=== PATIENT | female | born 1950 | race Caucasian/White ===

== ENCOUNTER → 2017-04-13 | Outpatient (REF) | payer MEDICARE, OTHER | LOC: ZZSENDIN 12:24 | PROVIDERS: ATTEND Physician Assistant Medical | DX: N39.0 Urinary tract infection, site not specified (principal); R82.99 Other abnormal findings in urine | CPT/HCPCS: 87088 ==

== ENCOUNTER 2017-08-29 00:11 | Day surgery (SDC) | payer MEDICARE, OTHER ==
[~2017-08-29] VITALS: Ht 165.1 cm; Wt 96.2 kg
[~2017-08-29 00:11] MED LIST: ALLO100T70 PO; CELE-1 PO; DULO30CA35 PO
[2017-08-29] MEDS ORDERED: PROPOFOL EMUL(*) 10MG/ML 20 ML 40 ML ONE (07:05)
[2017-08-29 09:03] VITALS: BP 158/92
[2017-08-29] MEDS ORDERED: NORMOSOL R SOLN(*) 1000 ML BAG 1,000 ML IV PRN (10:00)
[2017-08-29] MEDS ORDERED: PROPOFOL EMUL(*) 10MG/ML 20 ML 20 ML ONE (10:12)
[2017-08-29 10:19] VITALS: BP 109/63
--- NOTE | 2017-08-29 10:25 | Short(Outpt) Discharge Summary ---
Discharge Summary Reason for Hosp/Final Diag: (1) Colon cancer screening Status: Chronic Hospital Course & Plan: Colonoscopy completed without problems, poor prep. Departure Discharge to: Home, Self Care Discharge Instructions Home Meds Reported Medications Duloxetine Hcl (CYMBALTA) 30 Mg Capsule.dr, 30 MG PO QDAY, #5 CAP 07/03/17 Celecoxib (CELEBREX) 200 Mg Capsule, 200 MG PO QDAY, CAPSULE 07/03/17 Allopurinol (ALLOPURINOL) 100 Mg Tablet, 100 MG PO QDAY, #10 TAB 07/03/17 Diet: Regular Activity: As Tolerated Special Instructions: Your colonoscopy was completed without problems. Your prep wasn't adequate to call this a good screening test. There was too much liquid, solid, and particulate feces that I can't reassure you that you don't have colon polyps. I did make it all the way to the end of your colon and the parts that I could see did not have polyps or cancers but I can't rule out polyps covered by feces. I recommend that we try again with a different bowel prep in the next year or 2. MARY FRY MD Aug 29, 2017 10:25
[2017-08-29 10:44] VITALS: BP 122/62
[2017-08-29 10:46] VITALS: BP 99/67
== END 2017-08-29 11:08 | disposition home or self-care (01) ==
LOC: OR 00:11
PROVIDERS: ATTEND Surgery
DX: Z12.11 Encounter for screening for malignant neoplasm of colon (principal)
CPT/HCPCS: 00812; G0121; J2704

== ENCOUNTER → 2018-01-16 | Outpatient (REF) | payer MEDICARE, OTHER | LOC: ZZSENDIN 14:42 | PROVIDERS: ATTEND Family Medicine | DX: R35.0 Frequency of micturition (principal); R82.79 Other abnormal findings on microbiological examination of urine | CPT/HCPCS: 81001; 87088 ==

== ENCOUNTER 2018-05-29 20:31 | Inpatient (IN) | payer MEDICARE, OTHER ==
[~2018-05-29] VITALS: Ht 165.1 cm; Wt 107.2 kg
--- NOTE | 2018-05-29 20:55 | ER Report ---
History and Physical Time Seen By MD: 20:55 Hx. of Stated Complaint: HAS HAD ABDOMINAL AND BACK PAIN FOR 2 WEEKS. THINKS IT'S GALL STONES HPI/ROS CHIEF COMPLAINT: Abdominal and back pain HISTORY OF PRESENT ILLNESS: This is a 60-year-old female. She is having pain in her back that radiates through to her abdomen, has been that way for several weeks, thinks it may be her gallbladder. Pain seems worse in the epigastric and right upper quadrant area. Associated with some nausea. Pain is sharp at times. Nothing really makes it worse or better, sometimes it'll worse with position change. No definite fevers or chills but having some hot flashes at times. Sometimes the pain is bad enough that it takes her breath away but she is not short of breath. Allergies: Coded Allergies: levofloxacin (Verified Allergy, Severe, 05/29/18) lidocaine (Verified Allergy, Severe, ANAPHYLAXIS, 05/29/18) Home Meds Reported Medications Duloxetine Hcl (CYMBALTA) 30 Mg Capsule.dr, 30 MG PO QDAY, #5 CAP 07/03/17 Celecoxib (CELEBREX) 200 Mg Capsule, 300 MG PO QDAY, CAPSULE 07/03/17 Allopurinol (ALLOPURINOL) 100 Mg Tablet, 100 MG PO QDAY, #10 TAB 07/03/17 Reviewed Nurses Notes: Yes Hx Smoking: No Smoking Status: Never Smoker Hx Substance Use Disorder: No Hx Alcohol Use: No Constitutional Vital Sign - Last 24 Hours 05/29/18 05/29/18 05/29/18 05/29/18 20:31 20:39 20:41 20:46 Temp 98.2 Pulse ??? 120 117 Resp 24 B/P (MAP) 139/79 139/79 (99) Pulse Ox 85 92 O2 Delivery Room Air 05/29/18 05/29/18 05/29/18 05/29/18 21:00 21:01 21:16 21:30 Pulse 121 114 B/P (MAP) 146/102 (117) 149/90 (109) Pulse Ox 91 92 05/29/18 05/29/18 05/29/18 05/29/18 21:31 21:46 22:00 22:01 Pulse 114 111 ??? B/P (MAP) 115/73 (87) Pulse Ox 89 91 4/17/05/29/18 05/29/18 05/29/18 22:16 22:21 22:30 23:06 Pulse ??? 106 136 B/P (MAP) 124/68 (86) Pulse Ox 85 85 81 05/29/18 23:21 Pulse 108 Pulse Ox 90 Intake and Output 05/29/18 05/29/18 05/30/18 14:59 22:59 06:59 Intake Total 1000 ml Balance 1000 ml Physical Exam General Appearance: The patient is alert. Having mild acute distress because of the pain. Eyes: Pupils are equal, round. No pallor, injection or icterus. ENT: Mucous membranes are moist. Respiratory: Lungs are clear to auscultation. Cardiovascular: Regular rate and rhythm. No murmurs, gallops or rubs. Gastrointestinal: Abdomen is soft, tender in the right upper quadrant with positive Lilly sign. Guarding but no rebound. No masses or organomegaly. Normal active bowel sounds. No costovertebral angle tenderness with percussion. Neurological: Alert and oriented x3. No focal neurologic deficits Skin: Warm and dry. Musculoskeletal: No pain with palpating throughout the back. DIFFERENTIAL DIAGNOSIS: After history and physical exam, differential diagnosis was considered for abdominal pain including but not limited to colitis, gastroenteritis, cholecystitis, pancreatitis and urinary tract infection. Medical Decision Making Data Points Result Diagram: 05/29/18210805/29/182108 Laboratory Hematology Test 05/29/18 21:09 05/29/18 23:02 Red Blood Count 5.57 M/uL (4.17-5.56) Mean Corpuscular Volume 95.5 fL (80.0-96.0) Mean Corpuscular Hemoglobin 32.2 pg (26.0-33.0) Mean Corpuscular Hemoglobin Concent 33.7 g/dL (32.0-36.0) Red Cell Distribution Width 14.3 % (11.5-14.5) Mean Platelet Volume 8.0 fL (7.2-11.1) Neutrophils (%) (Auto) 90.2 % (39.4-72.5) Lymphocytes (%) (Auto) 3.7 % (17.6-49.6) Monocytes (%) (Auto) 4.6 % (4.1-12.4) Eosinophils (%) (Auto) 0.0 % (0.4-6.7) Basophils (%) (Auto) 1.5 % (0.3-1.4) Nucleated RBC Relative Count (auto) 0.0 /100WBC Neutrophils # (Auto) 10.9 K/uL (2.0-7.4) Lymphocytes # (Auto) 0.5 K/uL (1.3-3.6) Monocytes # (Auto) 0.6 K/uL (0.3-1.0) Eosinophils # (Auto) 0.0 K/uL (0.0-0.5) Basophils # (Auto) 0.2 K/uL (0.0-0.1) Nucleated RBC Absolute Count (auto) 0.01 K/uL Sodium Level 132 mmol/L (137-145) Potassium Level 4.3 mmol/L (3.5-5.0) Chloride Level 98 mmol/L (98-107) Carbon Dioxide Level 24 mmol/L (22-31) Blood Urea Nitrogen 10 mg/dl (7-18) Creatinine 0.70 mg/dl (0.52-1.04) Glomerular Filtration Rate Calc > 60.0 Random Glucose 176 mg/dl (75-110) Calcium Level 8.9 mg/dl (8.4-10.2) Total Bilirubin 0.4 mg/dl (0.2-1.3) Aspartate Amino Transf (AST/SGOT) 24 U/L (0-35) Alanine Aminotransferase (ALT/SGPT) 21 U/L (0-56) Alkaline Phosphatase 118 U/L (0-126) Total Protein 7.7 g/dl (6.3-8.2) Albumin 4.2 g/dl (3.5-5.0) Amylase Level 49 U/L (0-110) Lipase 44 U/L (23-300) Helicobacter pylori IgG Antibody Negative (NEGATIVE) Urine Color Yellow Urine Clarity Slightly-cloudy Urine pH 7.0 pH (4.8-9.5) Urine Specific [place] 1.018 Urine Protein Negative mg/dL (NEGATIVE) Urine Glucose (UA) Negative mg/dL (NEGATIVE) Urine Ketones 20 mg/dL (NEGATIVE) Urine Blood Small (NEGATIVE) Urine Nitrite Negative (NEGATIVE) Urine Bilirubin Negative (NEGATIVE) Urine Urobilinogen Negative mg/dL (0.2-1.9) Urine Leukocyte Esterase Negative (NEGATIVE) Urine RBC 10 /HPF (0-2/HPF) Urine WBC 2 /HPF (0-5/HPF) Urine Squamous Epithelial Cells Many /LPF (</=FEW) Urine Bacteria Few /HPF (NONE-FEW) Urine Mucus Few /HPF (NONE-FEW) Chemistry Test 05/29/18 21:09 05/29/18 23:02 White Blood Count 12.1 k/uL (4.5-11.0) Red Blood Count 5.57 M/uL (4.17-5.56) Hemoglobin 18.0 g/dL (12.0-16.0) Hematocrit 53.2 % (34.0-47.0) Mean Corpuscular Volume 95.5 fL (80.0-96.0) Mean Corpuscular Hemoglobin 32.2 pg (26.0-33.0) Mean Corpuscular Hemoglobin Concent 33.7 g/dL (32.0-36.0) Red Cell Distribution Width 14.3 % (11.5-14.5) Platelet Count 322 K/uL (150-450) Mean Platelet Volume 8.0 fL (7.2-11.1) Neutrophils (%) (Auto) 90.2 % (39.4-72.5) Lymphocytes (%) (Auto) 3.7 % (17.6-49.6) Monocytes (%) (Auto) 4.6 % (4.1-12.4) Eosinophils (%) (Auto) 0.0 % (0.4-6.7) Basophils (%) (Auto) 1.5 % (0.3-1.4) Nucleated RBC Relative Count (auto) 0.0 /100WBC Neutrophils # (Auto) 10.9 K/uL (2.0-7.4) Lymphocytes # (Auto) 0.5 K/uL (1.3-3.6) Monocytes # (Auto) 0.6 K/uL (0.3-1.0) Eosinophils # (Auto) 0.0 K/uL (0.0-0.5) Basophils # (Auto) 0.2 K/uL (0.0-0.1) Nucleated RBC Absolute Count (auto) 0.01 K/uL Glomerular Filtration Rate Calc > 60.0 Calcium Level 8.9 mg/dl (8.4-10.2) Total Bilirubin 0.4 mg/dl (0.2-1.3) Aspartate Amino Transf (AST/SGOT) 24 U/L (0-35) Alanine Aminotransferase (ALT/SGPT) 21 U/L (0-56) Alkaline Phosphatase 118 U/L (0-126) Total Protein 7.7 g/dl (6.3-8.2) Albumin 4.2 g/dl (3.5-5.0) Amylase Level 49 U/L (0-110) Lipase 44 U/L (23-300) Helicobacter pylori IgG Antibody Negative (NEGATIVE) Urine Color Yellow Urine Clarity Slightly-cloudy Urine pH 7.0 pH (4.8-9.5) Urine Specific [place] 1.018 Urine Protein Negative mg/dL (NEGATIVE) Urine Glucose (UA) Negative mg/dL (NEGATIVE) Urine Ketones 20 mg/dL (NEGATIVE) Urine Blood Small (NEGATIVE) Urine Nitrite Negative (NEGATIVE) Urine Bilirubin Negative (NEGATIVE) Urine Urobilinogen Negative mg/dL (0.2-1.9) Urine Leukocyte Esterase Negative (NEGATIVE) Urine RBC 10 /HPF (0-2/HPF) Urine WBC 2 /HPF (0-5/HPF) Urine Squamous Epithelial Cells Many /LPF (</=FEW) Urine Bacteria Few /HPF (NONE-FEW) Urine Mucus Few /HPF (NONE-FEW) Urinalysis Test 05/29/18 23:02 Urine Color Yellow Urine Clarity Slightly-cloudy Urine pH 7.0 pH (4.8-9.5) Urine Specific [place] 1.018 Urine Protein Negative mg/dL (NEGATIVE) Urine Glucose (UA) Negative mg/dL (NEGATIVE) Urine Ketones 20 mg/dL (NEGATIVE) Urine Blood Small (NEGATIVE) Urine Nitrite Negative (NEGATIVE) Urine Bilirubin Negative (NEGATIVE) Urine Urobilinogen Negative mg/dL (0.2-1.9) Urine Leukocyte Esterase Negative (NEGATIVE) Urine RBC 10 /HPF (0-2/HPF) Urine WBC 2 /HPF (0-5/HPF) Urine Squamous Epithelial Cells Many /LPF (</=FEW) Urine Bacteria Few /HPF (NONE-FEW) Urine Mucus Few /HPF (NONE-FEW) EKG/Imaging Imaging GALLBLADDER HISTORY: epigastric and ruq abd pain ADDITIONAL GALLBLADDER EXAMINATION: Abdominal ultrasound limited Additional Pertinent history: none COMPARISON STUDIES: none FINDINGS: Gallbladder: Stone laden gallbladder. Wall somewhat indistinct and is thickened up to 4.4 mm in size. No pericholecystic fluid. Positive Lilly sign. Liver: Enlarged heterogenous liver measuring 20 cm. Increased echogenicity compatible fatty infiltrative change. Common duct: normal. Maximal size is 9.0 mm. Pancreas: Obscured from overlying bowel gas. Right Kidney: 1.9 x 4.4 x 4.9 cm. Upper abdominal aorta and IVC: negative Ascites: none IMPRESSION: 1. Stone laden gallbladder with mildly thickened wall measuring up to 4.4 mm. Positive Lilly sign. The findings would be compatible with acute cholecystitis in the correct clinical setting. Common bile duct mildly dilated at 9 mm. Report Dictated By: Sukhi Campbell MD at 05/29/2018 10:38 PM ED Course/Re-evaluation Clinical Indication for ER IV: Hydration, IV Access ED Course Initial improvement with some morphine and Zofran as well as IV fluids. Ultrasound obtained and is positive for wall thickening and gallstones. No evidence of bile duct dilation. Labs show normal LFTs, amylase and lipase but a slight elevation of the white blood cell count. Discussed the case with Dr. Aragon, general surgery. Patient will be kept NPO, given IV fluids, pain and nausea medicines as needed and given Zosyn 3.375g IV. Decision to Disposition Date: May 29, 2018 Decision to Disposition Time: 23:04 Depart Departure Latest Vital Signs Vital Signs Date Time Temp Pulse Resp B/P (MAP) Pulse Ox O2 Delivery O2 Flow Rate FiO2 05/29/18 23:21 108 90 05/29/18 22:30 124/68 (86) 05/29/18 20:39 98.2 24 Room Air Impression: Primary Impression: Cholecystitis Condition: Improved Disposition: Admitted from ER Referrals: MARY EASON MD (PCP) SCHUYLER DIAS MD May 29, 2018 20:55
[2018-05-29] MEDS ORDERED: NS(*) 0.9% 1000 ML BAG 1,000 ML IV ONE (21:09)
[2018-05-29] MEDS ORDERED: PANTOPRAZOLE SOD 40 MG IV VIAL IVP ONE (21:10)
[2018-05-29] MEDS ORDERED: ONDANSETRON 4 MG/2 ML VIAL IVP ONE (21:10)
[2018-05-29] MEDS ORDERED: MORPHINE 4 MG/ML SDV IVP ONE (21:10)
[2018-05-29 21:22] LABS: PLATELET COUNT, AUTOMATED 322 K/uL (150-450)
--- NOTE | 2018-05-29 22:54 | RADIOLOGY IMAGING REPORT ---
FACILITY: [facility] - [place] PATIENT NAME: Daphne Todd : 1950 MR: [id number] V: [id number] EXAM DATE: [id number] ORDERING PHYSICIAN: SCHUYLER DIAS TECHNOLOGIST: Location: [facility] Patient: Daphne Todd : 1950 Visit/Account:[id number] Date of Sevice: 05/29/2018 GALLBLADDER HISTORY: epigastric and ruq abd pain ADDITIONAL GALLBLADDER EXAMINATION: Abdominal ultrasound limited Additional Pertinent history: none COMPARISON STUDIES: none FINDINGS: Gallbladder: Stone laden gallbladder. Wall somewhat indistinct and is thickened up to 4.4 mm in size. No pericholecystic fluid. Positive Lilly sign. Liver: Enlarged heterogenous liver measuring 20 cm. Increased echogenicity compatible fatty infiltrat rehana change. Common duct: normal. Maximal size is 9.0 mm. Pancreas: Obscured from overlying bowel gas. Right Kidney: 1.9 x 4.4 x 4.9 cm. Upper abdominal aorta and IVC: negative Ascites: none IMPRESSION: 1. Stone laden gallbladder with mildly thickened wall measuring up to 4.4 mm. Positive Lilly sign. T he findings would be compatible with acute cholecystitis in the correct clinical setting. Common bile duct mildly dilated at 9 mm. Report Dictated By: Sukhi Campbell MD at 05/29/2018 10:38 PM Report E-Signed By: Sukhi Campbell MD at 05/29/2018 10:49 PM WSN:[id number]
[2018-05-29 23:40] VITALS: BP 130/85
[2018-05-30] MEDS ORDERED: ONDANSETRON 4 MG/2 ML VIAL IVP PRN (00:10)
[2018-05-30] MEDS: NS(*) 0.9% 1000 ML BAG 1,000 ML IV PRN ×2 (00:15→10:03)
[2018-05-30] MEDS ORDERED: PCA LOCKBOX KEYS XX ONE ×2 (00:28→12:05)
[2018-05-30] MEDS: MORPHINE 1 MG/ML 30 ML PCA IV PRN ×2 (00:43→12:12)
[2018-05-30] MEDS ORDERED: PIPERACILLIN/TAZO*3.375GM VIAL 3.375 GM in NS(*) 0.9% 100 ML MINI-BAG 100 ML IVPB ONE (02:05)
[2018-05-30] MEDS ORDERED: PIPERACILLIN/TAZO*3.375GM VIAL 3.375 GM ONE (02:13)
[2018-05-30] MEDS ORDERED: NS(*) 0.9% 100 ML BAG 100 ML ONE (02:13)
[2018-05-30 03:12] VITALS: BP 113/85
[2018-05-30] MEDS ORDERED: FLUSH 10 ML SYR IVP PRN (06:15)
--- NOTE | 2018-05-30 06:16 | EKG ---
FACILITY: [facility] [place] PATIENT NAME: SHRADDHA MILLER : [id number] MR: [id number] V: [id number] EXAM DATE: ORDERING PHYSICIAN: MARY FRY TECHNOLOGIST: KARLA Test Reason : PREOP Blood Pressure : / mmHG Vent. Rate : 099 BPM Atrial Rate : 099 BPM P-R Int : 170 ms QRS Dur : 104 ms QT Int : 362 ms P-R-T Axes : 048 -36 017 degrees QTc Int : 464 ms Normal sinus rhythm Left axis deviation Abnormal ECG No previous ECGs available Confirmed by MARY POND ([id number]) on 05/30/2018 12:41:56 PM Referred By: Confirmed By:MARY POND
[2018-05-30 06:20] LABS: PLATELET COUNT, AUTOMATED 271 K/uL (150-450)
--- NOTE | 2018-05-30 06:21 | Gen Surgery History & Physical ---
History of Present Illness Chief Complaint Abdominal and back pain History of Present Illness 68yo female presents to the ER with abdominal pain and back pain for 4 days. She's actually had intermittent abdominal pain for 2-3 weeks but it became more persistent, constant, and worsening over the last 4 days. No F/C, no N/V, no constipation or diarrhea. No jaundice, choleurea, or steatorrhea. U/S reveals a gallbladder full of stones with inflammation and so I've been asked to admit for further management. History Problems: (1) Depression Status: Chronic (2) Gout Status: Chronic Home Meds Reported Medications Duloxetine Hcl (CYMBALTA) 30 Mg Capsule.dr, 30 MG PO QDAY, #5 CAP 07/03/17 Celecoxib (CELEBREX) 200 Mg Capsule, 300 MG PO QDAY, CAPSULE 07/03/17 Allopurinol (ALLOPURINOL) 100 Mg Tablet, 100 MG PO QDAY, #10 TAB 07/03/17 Allergies: Coded Allergies: levofloxacin (Verified Allergy, Severe, 05/29/18) lidocaine (Verified Allergy, Severe, ANAPHYLAXIS, 05/29/18) Review of Systems All Systems Reviewed/Normal: Yes, Except as Noted Gastrointestinal: Abdominal Pain Musculoskeletal: Pain (back pain) Exam General Appearance: Alert, Awake, No Acute Distress, Afebrile Neuro: No Gross deficits Eyes: PERRLA GI: Other (Soft, RUQ TTP with positive Lilly's sign.) Extremities: Warm, Perfused Psych: Alert & Oriented X3, Appropriate Mood & Affect Medical Decision Making Data Points Result Diagram: 05/29/18210805/29/182108 Assessment and Plan Problems: (1) Cholecystitis Status: Acute Assessment & Plan: 05/30/18: Admit, NPO, IV fluids, IV abx, to OR later today for lap greg if LFTs and lipase this morning remain normal. I have explained this plan to the patient in detail and she seems to understand and she seems agreeable with this plan. I have explained surgery to her in great detail as well including the alternatives, risks (including CBD injury, duodenal injury, need to convert to open surgery, etc), and expected recovery in great detail as well. She indicates her understanding of the PAR discussion and her questions were answered to her apparent satisfaction and she would like to proceed with surgery. Condition Stable. Time Spent: < 30 min Venous Thromboembolism VTE Risk Physician Assess for VTE Risk: Yes Patient's VTE Risk: Low VTE Diagnostic Test 2 Days Prior to Admit: No Antithrombotics Is Pt On Any Antithrombotics?: No MARY FRY MD May 30, 2018 06:21
--- NOTE | 2018-05-30 06:41 | RADIOLOGY IMAGING REPORT ---
FACILITY: [facility] - [place] PATIENT NAME: Daphne Todd : 1950 MR: [id number] V: [id number] EXAM DATE: ORDERING PHYSICIAN: MARY FRY TECHNOLOGIST: Location: [facility] Patient: Daphne Todd : 1950 Visit/Account:[id number] Date of Sevice: 05/30/2018 AP CHEST 05/30/2018 5:00 AM. INDICATION: Preoperative evaluation. COMPARISON: None. FINDINGS: Mild elevation of the right hemidiaphragm, lungs are otherwise well-expanded. There may be minimal s carring/atelectasis at the left base. Streaky opacity in the right perihilar region also likely repr esent subsegmental atelectasis. No pleural effusion or pneumothorax. Heart size is likely normal gi liam technique and habitus. IMPRESSION: Mild atelectasis, otherwise nonacute. Report Dictated By: Michael Arceo MD at 05/30/2018 6:36 AM Report E-Signed By: Michael Arceo MD at 05/30/2018 6:37 AM WSN:[id number]
[2018-05-30 07:11] VITALS: BP 131/84
[2018-05-30] MEDS: NORMOSOL R SOLN(*) 1000 ML BAG 1,000 ML IV ONE ×2 (07:50→16:45)
[2018-05-30] MEDS: PIPERACILLIN/TAZO*3.375GM VIAL 3.375 GM in NS(*) 0.9% 100 ML MINI-BAG 100 ML IVPB SCH ×3 (08:38→22:06)
[2018-05-30] MEDS: PANTOPRAZOLE SOD 40 MG IV VIAL IVP SCH (08:38)
[2018-05-30 08:51] VITALS: Ht 165.1 cm; Wt 107.2 kg
[2018-05-30 14:51] VITALS: BP 141/75
--- NOTE | 2018-05-30 15:04 | NUR ---
At this time, LUMP MAKER pump shows 5mg of morphine has infused, but only a total of 4mg of morphine has been used from the vial-- resulting in a total of 26mg of morphine remaining for pt use. Addendum: 05/30/18 at 1507 by UMA BETHEA RN Amended: Links added.
[2018-05-30] MEDS ORDERED: NORMOSOL R SOLN(*) 1000 ML BAG 1,000 ML IV ONE (15:08)
[2018-05-30] MEDS ORDERED: SUGAMMADEX SOD 200 MG/2 ML SDV ONE (15:32)
[2018-05-30] MEDS ORDERED: PROPOFOL EMUL(*) 10MG/ML 20 ML 20 ML ONE (15:32)
[2018-05-30] MEDS ORDERED: fentaNYL CITR 250 MCG/5 ML AMP ONE (15:32)
[2018-05-30] MEDS ORDERED: ONDANSETRON 4 MG/2 ML VIAL ONE (15:32)
[2018-05-30] MEDS ORDERED: LIDOCAINE MPF 1% 5 ML VIAL ONE (15:32)
[2018-05-30] MEDS ORDERED: ROCURONIUM BROM 10 MG/ML 10 ML ONE (15:32)
[2018-05-30] MEDS ORDERED: DEXAMETHASONE SOD 4 MG/ML VIAL ONE (15:32)
[2018-05-30] MEDS ORDERED: PCA LOCKBOX KEYS XX PRN (15:45)
[2018-05-30] MEDS ORDERED: KETAMINE HCL 200 MG/20 ML MDV ONE ×2 (16:19→16:20)
[2018-05-30] MEDS ORDERED: IOPAMIDOL 61% 100 ML INFUS BTL 100 ML ONE (16:39)
[2018-05-30] MEDS ORDERED: ROPIVACAINE 0.5% 20 ML VIAL ONE (16:39)
[2018-05-30] MEDS ORDERED: MIDAZOLAM 2 MG/2 ML VIAL IVP PRN (16:55)
[2018-05-30] MEDS ORDERED: ESMOLOL 10 MG/ML 10ML SDV ONE (18:52)
[2018-05-30] MEDS ORDERED: fentaNYL CITR 100 MCG/2 ML AMP ONE ×2 (19:49→20:39)
--- NOTE | 2018-05-30 20:28 | RADIOLOGY IMAGING REPORT ---
FACILITY: [facility] - [place] PATIENT NAME: Daphne Todd : 1950 MR: [id number] V: [id number] EXAM DATE: ORDERING PHYSICIAN: MARY FRY TECHNOLOGIST: Location: [facility] [place] Patient: Daphne Todd : 1950 Visit/Account:[id number] Date of Sevice: 05/30/2018 EXAMINATION: Intraoperative fluoroscopic images of the right upper abdomen. HISTORY: Laparoscopic cholecystectomy. COMPARISON: Gallbladder ultrasound 05/29/2018. FINDINGS: Fluoroscopic images of the right upper abdomen were obtained in the OR during an intraoperative chola ngiogram. The cystic duct is cannulated. There is contrast opacification of the common bile duct and central i ntrahepatic ducts. The cystic duct has a fairly low insertion onto the common bile duct. The common b ile duct and common hepatic duct are moderately dilated. There is a small filling defect in the infer ior common bile duct suspicious for an intraductal stone, measuring approximately 5 mm. A small amoun t of contrast does pass into the duodenum. Dose: DAP was 13.360 Gy*cm2. IMPRESSION: Fluoroscopy was utilized during an intraoperative cholangiogram. There is dilatation of the bile duct s with a small filling defect in the inferior common bile duct suspicious for an intraductal stone. A small amount of contrast passes into the duodenum. Please see the separate operative report for furt her description of findings. Report Dictated By: Steve Brandon MD at 05/30/2018 8:20 PM Report E-Signed By: Steve Brandon MD at 05/30/2018 8:23 PM WSN:[id number]
[2018-05-30] MEDS ORDERED: ACETAMINOPHEN(*)1000 MG/100 ML 100 ML IVPB ONE (21:04)
--- NOTE | 2018-05-30 21:14 | Post Operative Progress Note ---
Post Operative Progress Note Date: May 30, 2018 Time: 21:03 Surgeon: Farooq Dictation number: [id number] Anesthesia: GETA by Dr. Shaw Pre-Op Diagnosis: Acute cholecystitis Post-Op Diagnosis: Acute cholecystitis Choledocholithiasis Findings: Very inflammed and immobile gallbladder full of stones Stone in distal CBD on cholangiogram Procedure(s): Laparoscopic cholecystectomy with cholangiogram Specimen Removed:(May be N/A): GB and contents Complications: None Fluids: See anesthesia record Estimated Blood Loss: 100mL Date OP Note Dictated: May 30, 2018 Time OP Note Dictated: 21:05 MARY FRY MD May 30, 2018 21:14
[2018-05-30 21:16] LABS: PLATELET COUNT, AUTOMATED 272 K/uL (150-450)
[2018-05-30 21:53] VITALS: BP 125/71
--- NOTE | 2018-05-31 02:25 | OPERATIVE REPORT 1 ---
EVENT DATE: May 30, 2018 SURGEON: Corey Trivedi MD ANESTHESIOLOGIST: Alireza Walker MD ANESTHESIA: General endotracheal anesthesia. PREOPERATIVE DIAGNOSIS Acute cholecystitis. POSTOPERATIVE DIAGNOSES 1. Acute cholecystitis. 2. Choledocholithiasis. PROCEDURE PERFORMED Laparoscopic cholecystectomy with intraoperative cholangiogram. COMPLICATIONS None. CONDITION Stable. BLOOD LOSS 100 mL. SPECIMENS Gallbladder and contents. FINDINGS This patient's gallbladder was very severely inflamed, full of gallstones, and ungraspable with the instruments in general. Cholangiogram revealed that I was well away from the common bile duct, but the bile ducts all were very dilated, and there was a distal common bile duct stone. In fact, initially there appeared to be two of them, but one of them seems to have passed into the duodenum, as there was only one remaining, but I was unable to get this to pass into the duodenum. INDICATIONS A 68-year-old female who presented to the emergency room with right upper quadrant abdominal pain and ultrasound consistent with cholecystitis. She was admitted to the hospital and placed on IV antibiotics and bowel rest and consented for a laparoscopic cholecystectomy. DESCRIPTION OF PROCEDURE Patient was brought to the operating room and placed supine on the operating table, where general endotracheal anesthesia was administered and her abdomen was prepped and draped in a sterile fashion. Time-out was completed, and I injected the infraumbilical skin with 0.5% bupivacaine plain. I made a curvilinear smiley-face incision in the infraumbilical rim and dissected through the dermis and subcutaneous fat, and I identified the midline fascia. I made a vertical incision in the midline fascia and grasped the fascial edges with Ashish clamps and entered the peritoneal cavity with my finger. I placed two interrupted 0 Vicryl sutures transversely through the vertical fascial defect and then inserted a 12 mm Rogerio-type port through this wound and secured it into place with sutures. I insufflated the abdomen to a pressure of 15 mmHg and inserted a 5 mm 30-degree angled scope through this port. Next, under direct visualization, I placed a 5 mm port in the epigastric midline and two 5 mm ports in the right upper quadrant. Patient was placed in reverse Trendelenburg and planed to her left to move viscera from the right upper quadrant. Initially, the gallbladder was not visible, as it was covered with omentum which was densely adhesed to it. I was able to strip the omentum away from the gallbladder with some effort, and then I tried to grab the gallbladder fundus but was unable to, and so I used the decompression needle and sucked as much of the bile out as I could, but it was not very much, as the gallbladder was chock full of stones and there was not a lot of bile in the gallbladder. I essentially struggled through the whole case grasping the gallbladder, but was able to do it and tried to work down near the infundibulum, but there was no easy dissectible plane in this area. After working in this area for a while, I aborted attempts at dissecting out the infundibulum for fear of injuring a common duct structure. I then took the gallbladder down from the gallbladder fossa from the top down, and this was done fairly easily, although there was a lot of oozing of blood from the gallbladder fossa in the process of taking the gallbladder down. Once I got down to the infundibulum, it allowed me to dissect circumferentially around the infundibulum until, with a lot of effort, I was able to identify the cystic artery, which I clipped and divided, and then the cystic duct, and clipped this at the infundibular/cystic duct junction. I made a ductotomy and milked the duct from distal to proximal, but there were no obvious stones in the cystic duct, and so then I inserted the cholangiocatheter and then completed a cholangiogram. This revealed that I was dealing with a rather long cystic duct that actually entered the common duct system on the left side of the common duct, and the entire duct system was dilated. I identified the common hepatic duct and intrahepatic biliary system, which was dilated but no filling defects, but the distal common bile duct had two filling defects. I worked on this for a little bit and even passed the stone basket and gave 1 mg of Glucagon, and ultimately, at the end of the case, there was one stone in the distal common bile duct, but I did not see the other stone anymore. I could not flush the remaining stone out of the common bile duct. I asked for the ureteroscope to perform choledochoscopy, but the crew that was with me this evening was not familiar with how to set it up, so I aborted further attempts at clearing the duct. I then clipped the duct with three clips distal to the ductotomy and then divided the cystic duct. I then placed a Vicryl Endoloop around the cystic duct stump, since there was a common duct stone, so as to prevent overpressurization and the clips popping off and bile leak ensuing. I then placed a 10 mm flat Molina-Johns drain right under the liver and gallbladder fossa, and it came out through the right upper lateral-most 5 mm port site, and I sutured this to the skin with an 0 silk suture. I then placed Augusto hemostatic agent all along the gallbladder fossa and down by the duct and artery structures. I then placed a surgical specimen retrieval bag inside the patient's abdomen and placed the gallbladder within this, and then was able to remove the gallbladder from the umbilical wound, but I had to make the fascial incision a little bigger to get the gallbladder out. This was passed off the field. I then inspected the abdomen and found no other problems or abnormalities, and the drain was in a good spot. I then desufflated the abdomen, removed all the ports and instruments, and then placed a running 0 Vicryl suture in the midline fascia at the umbilicus and tied all three of these down with good reapproximation of the fascial edges and no remaining fascial defect. I then closed the skin at each port site with 4-0 Monocryl subcuticular sutures. Incidentally, I did have to place another 5 mm port in the epigastric midline senior care between the previously placed epigastric port and the umbilical port. Because of the patient's body habitus, the camera was really far away from the gallbladder fossa, so to get better vantage point, this port assisted in this. After all the skin incisions were sutured closed, the patient's abdomen was cleaned and dried and Steri-Strips were applied, followed by sterile surgical dressings. The patient was awakened, extubated in the operating room, and transported to the recovery room in stable condition, having tolerated the procedure without any apparent problems. ARMANDO
[2018-05-31] MEDS: PIPERACILLIN/TAZO*3.375GM VIAL 3.375 GM in NS(*) 0.9% 100 ML MINI-BAG 100 ML IVPB SCH ×4 (02:42→20:36)
[2018-05-31 05:35] LABS: PLATELET COUNT, AUTOMATED 256 K/uL (150-450)
[2018-05-31] MEDS ORDERED: PCA LOCKBOX KEYS XX ONE (05:38)
[2018-05-31] MEDS: MORPHINE 1 MG/ML 30 ML PCA IV PRN (05:45)
[2018-05-31 07:05] VITALS: BP 122/68
--- NOTE | 2018-05-31 07:32 | General Surgery Progress Note ---
Subjective Progress Notes Subjective No complaints this morning. Preop pain is gone. Pt hungry and wishes to eat. Physical Exam Vital Signs Date Time Temp Pulse Resp B/P (MAP) Pulse Ox O2 Delivery O2 Flow Rate FiO2 05/31/18 07:05 98.9 78 20 122/68 (86) 90 Nasal Cannula 3.0 Intake and Output 05/31/18 07:00 Intake Total 2450 ml Output Total 65 ml Balance 2385 ml Intake IV Total 2450 ml Output Drainage Total 65 ml # Voids 8 General Appearance: Alert, Awake, No Acute Distress, Afebrile GI: Other (Soft, appropriate postop TTP, dressings C/D/I, JERARDO with serosanguinous drainage) Extremities: Warm, Perfused Result Diagram: 05/31/1851905/31/18519 Assessment and Plan Problems: (1) Cholecystitis Status: Acute Assessment & Plan: 05/30/18: Admit, NPO, IV fluids, IV abx, to OR later today for lap greg if LFTs and lipase this morning remain normal. I have explained this plan to the patient in detail and she seems to understand and she seems agreeable with this plan. I have explained surgery to her in great detail as well including the alternatives, risks (including CBD injury, duodenal injury, need to convert to open surgery, etc), and expected recovery in great detail as well. She indicates her understanding of the PAR discussion and her questions were answered to her apparent satisfaction and she would like to proceed with surgery. 05/31/18: POD#1 s/p lap greg with cholangiogram. Doing well. Stone seen in CBD but LFTs coming down to normal so stone has likely passed. Will start clear diet today and advance to regular diet as tolerated. Will recheck LFTs in the morning and if she's tolerating a diet and LFTs remain normal, or trending to normal, will d/c to home tomorrow. Will likely remove JERARDO drain prior to discharge. Condition Stable. Time Spent: < 30 min Exam Sepsis Risk: No Definite Risk MARY FRY MD May 31, 2018 07:32
--- NOTE | 2018-05-31 07:36 | NUR ---
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 Addendum: 05/31/18 at 0737 by UMA BETHEA RN Amended: Links added.
[2018-05-31] MEDS: NS(*) 0.9% 1000 ML BAG 1,000 ML IV PRN (07:46)
[2018-05-31] MEDS: PANTOPRAZOLE SOD 40 MG IV VIAL IVP SCH (09:20)
[2018-05-31 12:07] VITALS: BP 135/70
[2018-05-31 15:17] VITALS: BP 121/65
[2018-05-31] MEDS ORDERED: PROG100C PO (16:13)
[2018-05-31] MEDS ORDERED: DULO60CA7 PO (16:13)
[2018-05-31] MEDS ORDERED: AMIT-106 PO (16:13)
[2018-05-31] MEDS ORDERED: ALLO-2 PO (16:13)
[2018-05-31] MEDS ORDERED: ESTR-33 PO (16:13)
[2018-05-31] MEDS ORDERED: TRAM-420 PO ×2 (16:13→16:20)
[2018-05-31] MEDS ORDERED: DULO30CA6 PO (16:13)
[2018-05-31] MEDS ORDERED: DOCU-416 PO (16:20)
[2018-05-31] MEDS ORDERED: NS(*) 0.9% 1000 ML BAG 1,000 ML IV PRN (16:40)
[2018-05-31] MEDS ORDERED: HYDROmorphone HCL 2 MG/ML SDV IVP PRN (16:40)
[2018-05-31] MEDS: traMADol 50 MG TAB PO PRN (18:15)
[2018-05-31] MEDS: ACETAMINOPHEN 325 MG TAB PO PRN (18:15)
[2018-05-31 19:20] VITALS: BP 121/63
[2018-05-31] MEDS: DOCUSATE SODIUM 100 MG CAP PO SCH (20:36)
--- NOTE | 2018-05-31 21:05 | NUR ---
Pt asked this nurse to help her find the pill that she dropped in her bed. This nurse was confused as there was no medication given on this shift up to this point. Pt reported that the pill was to "help with the gas" and was one that she takes regularly at home. This nurse educated pt on importance on not taking any additional medication than what we are giving her. This nurse emphasized that while pt is under our care, she must not take any of her own medication and we must control all drugs given. Pt A&Ox4 and agreed that she will not take any additional medication. Pt had no further questions.
[2018-05-31 23:58] VITALS: BP 120/66
[2018-06-01] MEDS: traMADol 50 MG TAB PO PRN ×4 (00:03→17:56)
[2018-06-01] MEDS: PIPERACILLIN/TAZO*3.375GM VIAL 3.375 GM in NS(*) 0.9% 100 ML MINI-BAG 100 ML IVPB SCH ×2 (02:05→08:00)
[2018-06-01 03:07] VITALS: BP 104/50
[2018-06-01 05:53] LABS: PLATELET COUNT, AUTOMATED 279 K/uL (150-450)
[2018-06-01 07:17] VITALS: BP 110/64
[2018-06-01] MEDS: PANTOPRAZOLE SOD 40 MG TABEC PO SCH (09:02)
[2018-06-01] MEDS: DOCUSATE SODIUM 100 MG CAP PO SCH ×2 (09:02→21:13)
[2018-06-01] MEDS: ENOXAPARIN 40 MG/0.4ML SYR SC SCH (09:03)
[2018-06-01] MEDS ORDERED: FUROSEMIDE 20 MG TAB PO ONE (10:25)
--- NOTE | 2018-06-01 10:36 | General Surgery Progress Note ---
Subjective Progress Notes Subjective Slept okay, pain under reasonable control, tolerating diet but not pushing it. No BM Physical Exam Vital Signs Date Time Temp Pulse Resp B/P (MAP) Pulse Ox O2 Delivery O2 Flow Rate FiO2 06/01/18 07:17 98.0 73 24 110/64 (79) 92 Nasal Cannula 3.5 Intake and Output 06/01/18 07:00 Intake Total 1787 ml Output Total 310 ml Balance 1477 ml Intake Oral 570 ml IV Total 1217 ml Output Drainage Total 310 ml # Voids 6 General Appearance: Alert, Awake, No Acute Distress, Afebrile Neuro: No Gross deficits ENT: Moist Mucous Membranes Cardiovascular: Regular Rate and Rhythm Respiratory: No Respiratory Distress (Bibasilar rales noted) GI: Soft and Non-Tender (Incisions clean, no drainage. Drain with bilious output.) Extremities: Soft and Non Tender Psych: Alert & Oriented X3 Result Diagram: 06/01/18 0520 06/01/18 0520 LFT's back to normal Pathology pending Antibiotic Date: Jun 01, 2018 Assessment and Plan Problems: (1) Cholecystitis Status: Acute Assessment & Plan: 05/30/18: Admit, NPO, IV fluids, IV abx, to OR later today for lap greg if LFTs and lipase this morning remain normal. I have explained this plan to the patient in detail and she seems to understand and she seems agreeable with this plan. I have explained surgery to her in great detail as well including the alternatives, risks (including CBD injury, duodenal injury, need to convert to open surgery, etc), and expected recovery in great detail as well. She indicates her understanding of the PAR discussion and her questions were answered to her apparent satisfaction and she would like to proceed with surgery. 05/31/18: POD#1 s/p lap greg with cholangiogram. Doing well. Stone seen in CBD but LFTs coming down to normal so stone has likely passed. Will start clear diet today and advance to regular diet as tolerated. Will recheck LFTs in the morning and if she's tolerating a diet and LFTs remain normal, or trending to normal, will d/c to home tomorrow. Will likely remove JERARDO drain prior to discharge. 06/01/18: POD #2 s/p lap greg and IOC. Feeling better. Only using Tramadol prn for pain. Tolerating small PO intake, no BM yet. LFT's back to normal. JERARDO drain has put out 300 ml and this is bile tinged. Still requiring O2 and noted to have bibasilar rales. Will buff cap IV and give Lasix 20 mg PO now. On Lovenox and SCD's for VTE prophylaxis. Encouraged to ambulate and to continue to use the IS hourly. I discussed with her my concerns for discharge today and she is in agreement to stay in hospital until these issues are improved. Will follow drain output closely, if still bilious then leave drain and may need to have ERCP and stent. Will recheck labs in am. I will stop antibiotics today. Time Spent: < 30 min Exam Sepsis Risk: No Definite Risk SANDY ZELAYA MD Jun 01, 2018 10:36
[2018-06-01] MEDS ORDERED: BISACODYL 10 MG SUPP PR PRN (10:40)
[2018-06-01] MEDS: ACETAMINOPHEN 325 MG TAB PO PRN ×2 (11:05→17:56)
[2018-06-01 12:10] VITALS: BP 123/75
[2018-06-01 15:44] VITALS: BP 118/61
[2018-06-01 21:22] VITALS: BP 110/54
[2018-06-01 22:56] VITALS: BP 127/70
[2018-06-02 02:36] VITALS: BP 129/83
[2018-06-02] MEDS: ACETAMINOPHEN 325 MG TAB PO PRN ×3 (02:47→18:29)
[2018-06-02 05:56] LABS: PLATELET COUNT, AUTOMATED 287 K/uL (150-450)
[2018-06-02 07:04] VITALS: BP 120/71
[2018-06-02] MEDS: PANTOPRAZOLE SOD 40 MG TABEC PO SCH (09:17)
[2018-06-02] MEDS: ENOXAPARIN 40 MG/0.4ML SYR SC SCH (09:17)
[2018-06-02] MEDS: traMADol 50 MG TAB PO PRN ×3 (09:17→18:29)
[2018-06-02] MEDS: DOCUSATE SODIUM 100 MG CAP PO SCH ×2 (09:18→21:04)
[2018-06-02] MEDS ORDERED: FUROSEMIDE 40 MG TAB PO ONE (10:45)
--- NOTE | 2018-06-02 10:53 | General Surgery Progress Note ---
Subjective Progress Notes Subjective Feeling better, passing gas, no BM yet, PO intake improving. Physical Exam Vital Signs Date Time Temp Pulse Resp B/P (MAP) Pulse Ox O2 Delivery O2 Flow Rate FiO2 06/02/18 09:18 83 06/02/18 09:18 Room Air 06/02/18 09:15 1.0 06/02/18 07:04 98.3 78 20 120/71 (87) Intake and Output 06/02/18 07:00 Intake Total 560 ml Output Total 160 ml Balance 400 ml Intake Oral 560 ml Output Drainage Total 160 ml # Voids 6 General Appearance: Alert, Awake, No Acute Distress, Afebrile Neuro: No Gross deficits ENT: Moist Mucous Membranes Cardiovascular: Regular Rate and Rhythm Respiratory: No Respiratory Distress, Other (still with bibasilar rales) GI: Soft and Non-Tender (Incisions all healing without infection. JERARDO output decreasing, still bile tinged) Extremities: Soft and Non Tender Result Diagram: 06/02/1851906/02/18519 Antibiotic Date: Jun 01, 2018 Assessment and Plan Problems: (1) Cholecystitis Status: Acute Assessment & Plan: 05/30/18: Admit, NPO, IV fluids, IV abx, to OR later today for lap greg if LFTs and lipase this morning remain normal. I have explained this plan to the patient in detail and she seems to understand and she seems agreeable with this plan. I have explained surgery to her in great detail as well including the alternatives, risks (including CBD injury, duodenal injury, need to convert to open surgery, etc), and expected recovery in great detail as well. She indicates her understanding of the PAR discussion and her questions were answered to her apparent satisfaction and she would like to proceed with surgery. 05/31/18: POD#1 s/p lap greg with cholangiogram. Doing well. Stone seen in C BD but LFTs coming down to normal so stone has likely passed. Will start clear diet today and advance to regular diet as tolerated. Will recheck LFTs in the morning and if she's tolerating a diet and LFTs remain normal, or trending to normal, will d/c to home tomorrow. Will likely remove JERARDO drain prior to discharge. 06/01/18: POD #2 s/p lap greg and IOC. Feeling better. Only using Tramadol prn for pain. Tolerating small PO intake, no BM yet. LFT's back to normal. JERARDO drain has put out 300 ml and this is bile tinged. Still requiring O2 and noted to have bibasilar rales. Will buff cap IV and give Lasix 20 mg PO now. On Lovenox and SCD's for VTE prophylaxis. Encouraged to ambulate and to continue to use the IS hourly. I discussed with her my concerns for discharge today and she is in agreement to stay in hospital until these issues are improved. Will follow drain output closely, if still bilious then leave drain and may need to have ERCP and stent. Will recheck labs in am. I will stop antibiotics today. 06/02/18: POD #3 s/p lap greg and IOC. Pain under good control, doing better with IS, though still requiring O2 to keep O2 Sats at 90%. Will give additional dose of Lasix 40 mg today. Labs look okay. Drain output has decreased with 160 ml out yesterday, still bile tinged. Encouraged to continue pulmonary toilet and ambulation. Wean O2 as tolerated. I feel she needs continue hospitalization today. If still with bile tinged JERARDO output then arrange for ERCP. If still requiring O2 to keep Sats > 90% then I will order an Echocardiogram in am. Time Spent: < 30 min Exam Sepsis Risk: No Definite Risk SANDY ZELAYA MD Jun 02, 2018 10:53
[2018-06-02 12:02] VITALS: BP_SYST 118; BP_SYST 147; BP_DIAS 92; BP_DIAS 95
[2018-06-02 19:51] VITALS: BP 104/38
[2018-06-02 23:08] VITALS: BP 114/75
[2018-06-03 01:55] VITALS: BP 120/85
[2018-06-03] MEDS: traMADol 50 MG TAB PO PRN ×4 (02:01→21:18)
[2018-06-03 06:40] VITALS: BP 126/78
[2018-06-03] MEDS: ENOXAPARIN 40 MG/0.4ML SYR SC SCH (07:42)
[2018-06-03] MEDS: DOCUSATE SODIUM 100 MG CAP PO SCH ×3 (07:42→21:18)
[2018-06-03] MEDS: PANTOPRAZOLE SOD 40 MG TABEC PO SCH (07:42)
--- NOTE | 2018-06-03 08:22 | General Surgery Progress Note ---
Subjective Progress Notes Subjective No complaints this morning. Passing flatus but no BM yet since surgery. Having some oxygenation issues, now on 3L to keep sats >90%. Physical Exam Vital Signs Date Time Temp Pulse Resp B/P (MAP) Pulse Ox O2 Delivery O2 Flow Rate FiO2 06/03/18 08:04 90 Nasal Cannula 1.0 06/03/18 06:40 98.3 74 20 126/78 (94) Intake and Output 06/03/18 07:00 Intake Total 820 ml Output Total 220 ml Balance 600 ml Intake Oral 820 ml Output Drainage Total 220 ml # Voids 11 General Appearance: Alert, Awake, No Acute Distress, Afebrile Cardiovascular: Regular Rate and Rhythm Respiratory: Clear to Auscultation GI: Soft and Non-Tender (Incisions all look good without erythema or drainage. JERARDO with bilious output. Abdomen is benign.) Extremities: Warm, Perfused Result Diagram: 06/02/1851906/02/18519 Antibiotic Date: Jun 01, 2018 Assessment and Plan Problems: (1) Cholecystitis Status: Acute Assessment & Plan: 05/30/18: Admit, NPO, IV fluids, IV abx, to OR later today for lap greg if LFTs and lipase this morning remain normal. I have explained this plan to the patient in detail and she seems to understand and she seems agreeable with this plan. I have explained surgery to her in great detail as well including the alternatives, risks (including CBD injury, duodenal injury, need to convert to open surgery, etc), and expected recovery in great detail as well. She indicates her understanding of the PAR discussion and her questions were answered to her apparent satisfaction and she would like to proceed with surgery. 05/31/18: POD#1 s/p lap greg with cholangiogram. Doing well. Stone seen in CBD but LFTs coming down to normal so stone has likely passed. Will start clear diet today and advance to regular diet as tolerated. Will recheck LFTs in the morning and if she's tolerating a diet and LFTs remain normal, or trending to normal, will d/c to home tomorrow. Will likely remove JERARDO drain prior to discharge. 06/01/18: POD #2 s/p lap greg and IOC. Feeling better. Only using Tramadol prn for pain. Tolerating small PO intake, no BM yet. LFT's back to normal. JERARDO drain has put out 300 ml and this is bile tinged. Still requiring O2 and noted to have bibasilar rales. Will buff cap IV and give Lasix 20 mg PO now. On Lovenox and SCD's for VTE prophylaxis. Encouraged to ambulate and to continue to use the IS hourly. I discussed with her my concerns for discharge today and she is in agreement to stay in hospital until these issues are improved. Will follow drain output closely, if still bilious then leave drain and may need to have ERCP and stent. Will recheck labs in am. I will stop antibiotics today. 06/02/18: POD #3 s/p lap greg and IOC. Pain under good control, doing better with IS, though still requiring O2 to keep O2 Sats at 90%. Will give additional dose of Lasix 40 mg today. Labs look okay. Drain output has decreased with 160 ml out yesterday, still bile tinged. Encouraged to continue pulmonary toilet and ambulation. Wean O2 as tolerated. I feel she needs continue hospitalization today. If still with bile tinged JERARDO output then arrange for ERCP. If still requiring O2 to keep Sats > 90% then I will order an Echocardiogram in am. 06/03/18: POD#4. Doing well overall but with increased O2 requirements. Will get echocardiogram today. Bile in JERARDO, will need to keep JERARDO in place until bilious output stops. Possibly from gallbladder fossa/liver bed. Less likely from cystic stump since it's ligated with vicryl stitch and 3 clips. I passed a stone basket to retrieve CBD stone (unsuccessfully) so cystic duct or CBD injury from the stone basket is also possible. Will follow this closely and will refer to ERCP if JERARDO bile output doesn't decline over the next day or two. Hopeful that she can go home later today or tomorrow (depending on echo results) and can follow her as outpatient and refer for ERCP as outpatient if bile output doesn't improve. I have explained this plan to the patient in detail and she seems to understand and she seems agreeable with this plan. Condition Stable. Time Spent: < 30 min Exam Sepsis Risk: No Definite Risk MARY FRY MD Jun 03, 2018 08:22
[2018-06-03 15:00] VITALS: BP 149/96
[2018-06-03 19:31] VITALS: BP 152/90
[2018-06-04 03:29] VITALS: BP 134/86
[2018-06-04 05:52] LABS: PLATELET COUNT, AUTOMATED 328 K/uL (150-450)
[2018-06-04 07:32] VITALS: BP 126/81
[2018-06-04] MEDS: traMADol 50 MG TAB PO PRN (07:40)
--- NOTE | 2018-06-04 09:16 | Short(Outpt) Discharge Summary ---
Discharge Summary Reason for Hosp/Final Diag: (1) Cholecystitis Status: Acute Hospital Course & Plan: 05/30/18: Admit, NPO, IV fluids, IV abx, to OR later today for lap rgeg if LFTs and lipase this morning remain normal. I have explained this plan to the patient in detail and she seems to understand and she seems agreeable with this plan. I have explained surgery to her in great detail as well including the alternatives, risks (including CBD injury, duodenal injury, need to convert to open surgery, etc), and expected recovery in great detail as well. She indicates her understanding of the PAR discussion and her questions were answered to her apparent satisfaction and she would like to proceed with surgery. 05/31/18: POD#1 s/p lap greg with cholangiogram. Doing well. Stone seen in CBD but LFTs coming down to normal so stone has likely passed. Will start clear diet today and advance to regular diet as tolerated. Will recheck LFTs in the morning and if she's tolerating a diet and LFTs remain normal, or trending to normal, will d/c to home tomorrow. Will likely remove JERARDO drain prior to discharge. 06/01/18: POD #2 s/p lap greg and IOC. Feeling better. Only using Tramadol prn for pain. Tolerating small PO intake, no BM yet. LFT's back to normal. JERARDO drain has put out 300 ml and this is bile tinged. Still requiring O2 and noted to have bibasilar rales. Will buff cap IV and give Lasix 20 mg PO now. On Lovenox and SCD's for VTE prophylaxis. Encouraged to ambulate and to continue to use the IS hourly. I discussed with her my concerns for discharge today and she is in agreement to stay in hospital until these issues are improved. Will follow drain output closely, if still bilious then leave drain and may need to have ERCP and stent. Will recheck labs in am. I will stop antibiotics today. 06/02/18: POD #3 s/p lap greg and IOC. Pain under good control, doing better with IS, though still requiring O2 to keep O2 Sats at 90%. Will give additional dose of Lasix 40 mg today. Labs look okay. Drain output has decreased with 160 ml out yesterday, still bile tinged. Encouraged to continue pulmonary toilet and ambulation. Wean O2 as tolerated. I feel she needs continue hosp italization today. If still with bile tinged JERARDO output then arrange for ERCP. If still requiring O2 to keep Sats > 90% then I will order an Echocardiogram in am. 06/03/18: POD#4. Doing well overall but with increased O2 requirements. Will get echocardiogram today. Bile in JERARDO, will need to keep JERARDO in place until bilious output stops. Possibly from gallbladder fossa/liver bed. Less likely from cystic stump since it's ligated with vicryl stitch and 3 clips. I passed a stone basket to retrieve CBD stone (unsuccessfully) so cystic duct or CBD injury from the stone basket is also possible. Will follow this closely and will refer to ERCP if JERARDO bile output doesn't decline over the next day or two. Hopeful that she can go home later today or tomorrow (depending on echo results) and can follow her as outpatient and refer for ERCP as outpatient if bile output doesn't improve. I have explained this plan to the patient in detail and she seems to understand and she seems agreeable with this plan. 06/04/18: POD#5. Continues to do well but still with quite a bit of bile in the drain. Echo without significant findings. EF 50-55%. Will plan on d/c today but I am in the process of contacting Dr. Valadez, pancreaticobiliary surgeon at [facility], to discuss outpatient ERCP with stent placement and I will facilitate a consultation with him for this procedure to hopefully be done in the next couple of days. Will leave JERARDO drain in place until either drainage stops or for 3 weeks after surgery at which time I will slowly withdraw the drain. Pt seems to understand and seems agreeable with this plan. I hope to hear back from Dr. Valadez in the next couple of hours. I have spoken with Dr. Valadez and he has scheduled her for ERCP to be done tomorrow afternoon at 4:00pm. Will d/c to home today with drain in place and I'll see her back in my office next week. She is agreeable with this plan. Departure Discharge to: Home, Self Care Discharge Instructions Home Meds Active Scripts Docusate Sodium (COLACE) 100 Mg Capsule, 1 CAP PO BID, #30 CAP 0 Refills TAKE WITH A FULL GLASS OF WATER Prov:MARY FRY MD 05/31/18 Tramadol Hcl (TRAMADOL HCL) 50 Mg Tablet, 1 TAB PO Q4H PRN for PAIN, #20 TAB 0 Refills Prov:MARY FRY MD 05/31/18 Reported Medications Amitriptyline Hcl (AMITRIPTYLINE HCL) 25 Mg Tablet, 1 TAB PO HS PRN for INSOMNIA 05/31/18 Allopurinol (Allopurinol) 300 Mg Tablet, 2 TAB PO QDAY 05/31/18 Duloxetine HCl (Duloxetine HCl) 60 Mg Capsule.dr, 1 CAP PO QDAY TAKE WITH 30 MG TO = 90 MG DAILY 05/31/18 Duloxetine HCl (Duloxetine HCl) 30 Mg Capsule.dr, 1 CAP PO QDAY TAKE WITH 60 MG TO = 90 MG DOSE DAILY 05/31/18 Tramadol Hcl (TRAMADOL HCL) 50 Mg Tablet, 1 TAB PO Q8H PRN for PAIN 05/31/18 Progesterone,Micronized (PROGESTERONE) 100 Mg Capsule, 1 CAP PO QPM WITH FOOD 05/31/18 Estradiol (ESTRADIOL) 1 Mg Tablet, 1 TAB PO QPM WITH FOOD 05/31/18 Discontinued Reported Medications Duloxetine Hcl (CYMBALTA) 30 Mg Capsule.dr, 30 MG PO QDAY, #5 CAP 07/03/17 Celecoxib (CELEBREX) 200 Mg Capsule, 300 MG PO QDAY, CAPSULE 07/03/17 Allopurinol (ALLOPURINOL) 100 Mg Tablet, 100 MG PO QDAY, #10 TAB 07/03/17 Follow up Referrals: General Surgery - 06/11/18 @ Surgery, General with MARY FRY MD You have a follow up appointment scheduled with Dr. Fry on 06/11/18, at 9:00am. Diet: Regular Activity: As Tolerated, No Heavy Lifting Special Instructions: You may shower as desired but don't immerse the incisions until cleared by Dr. Fry. You may leave the incisions open to air but leave the steristrips in place until they fall off on their own. Empty the drainage bulb as often as needed to keep the bulb empty. If the bulb gets completely full then the drain will no longer be functional until the bulb is emptied so try to empty the bulb well before it gets completely full. Arrive at [facility] in [place] tomorrow afternoon at 2:30pm or before for your procedure. Don't eat or drink anything after 7:00am unless Dr. Valadez's nurse provides different instructions, follow her instructions. MARY FRY MD May 31, 2018 16:25
[2018-06-04] MEDS: PANTOPRAZOLE SOD 40 MG TABEC PO SCH (10:20)
[2018-06-04] MEDS: DOCUSATE SODIUM 100 MG CAP PO SCH (10:20)
[2018-06-04] MEDS: ENOXAPARIN 40 MG/0.4ML SYR SC SCH (10:21)
== END 2018-06-04 11:20 | disposition home or self-care (01) | DRG 412 ==
LOC: ER 20:58 → INTOOBSV 23:24 → MED 23:24 → UNDOADMOB 23:24 → MED 23:24 → OBSVTOIN 06-03
PROVIDERS: ADMIT Surgery; ATTEND Surgery
PROC: BF10YZZ Fluoroscopy of Bile Ducts using Other Contrast (ICD-10-PCS; 2018-05-30)
PROC: 0FJB4ZZ Inspection of Hepatobiliary Duct, Percutaneous Endoscopic Approach (ICD-10-PCS; 2018-05-30)
PROC: 0FT44ZZ Resection of Gallbladder, Percutaneous Endoscopic Approach (ICD-10-PCS; principal; 2018-05-30 17:28)
DX: K80.62 Calculus of gallbladder and bile duct with acute cholecystitis without obstruction (principal); E66.2 Morbid (severe) obesity with alveolar hypoventilation; R06.09 Other forms of dyspnea; F32.9 Major depressive disorder, single episode, unspecified; M10.9 Gout, unspecified; Z88.1 Allergy status to other antibiotic agents; Z88.6 Allergy status to analgesic agent; G89.18 Other acute postprocedural pain; T70.29XA Other effects of high altitude, initial encounter
CPT/HCPCS: 36415; 71045; 74300; 76705; 81001; 82040; 82150; 82247; 82248; 82310; 82374; 82435; 82565; 82947; 83690; 84075; 84132; 84155; 84295; 84450; 84460; 84520; 85025; 86677; 88304; 93005; 93306; 96361; 96372; 96374; 96375; 99284; C9113; G0378; J0131; J1100; J1650; J2001; J2250; J2270; J2405; J2543; J2704; J2795; J3010; J3490; J7030; J7050; Q9967

== ENCOUNTER → 2018-06-30 | Outpatient (CLI) | payer MEDICARE, OTHER ==
[2018-05-30 08:51] VITALS: BMI 39.3
[~2018-06-30] MED LIST changes: +ALLO-2 PO; +AMIT-106 PO; +DOCU-416 PO; +DULO30CA6 PO; +DULO60CA7 PO; +ESTR-33 PO; +PROG100C PO; +TRAM-420 PO
--- NOTE | 2018-06-30 14:44 | RADIOLOGY IMAGING REPORT ---
[place] [facility] [place] NAME: Daphne Todd : 1950 MR: [id number] V: [id number] EXAM DATE: ORDERING PHYSICIAN: MARY FRY TECHNOLOGIST: Location: [facility] [place] Patient: Daphne Todd : 1950 Visit/Account:[id number] Date of Sevice: 06/30/2018 KUB SINGLE VIEW ABDOMEN Indication: PANCREAS STENT Comparison: None. Findings: There are postoperative changes from a cholecystectomy. Normal bowel gas pattern is seen. T he silhouettes of the liver and spleen are normal. No evidence of a pancreatic duct stent is seen in the abdomen or pelvis. IMPRESSION: 1. Changes from prior cholecystectomy. 2. Pancreatic duct stent is not visualized in the abdomen or pelvis. Report Dictated By: Michael Camilo at 06/30/2018 2:39 PM Report E-Signed By: Michael Camilo at 06/30/2018 2:41 PM WSN:[id number]
== END ==
LOC: RAD 12:59
PROVIDERS: ATTEND Surgery
DX: T85.9XXA Unspecified complication of internal prosthetic device, implant and graft, initial encounter (principal); Z90.49 Acquired absence of other specified parts of digestive tract
CPT/HCPCS: 74018